=== PATIENT | female | born 1990 | race Caucasian/White ===

== ENCOUNTER 2018-11-21 18:58 | Emergency (ER) | payer BC ==
[~2018-11-21] VITALS: Ht 160 cm; Wt 106.6 kg
--- OUTSIDE RECORDS SUMMARY | ~2018-11-21 | XMS | Clinical Summary ---
Demographics + + + | Address | [address] | | | [place] [address] | + + + | Home Phone | | + + + | Preferred Language | Unknown | + + + | Marital Status | | + + + | Hindu Affiliation | Unknown | + + + | Race | Unknown | + + + | Ethnic Group | Unknown | + + + Author + + + | Author | [facility] | + + + | Organization | [facility] | + + + | Address | Unknown | + + + | Phone | Unavailable | + + + Support + + +---------+ + | Name | Relationship | Address | Phone | + + +---------+ + | Trish Villanueva | ECON | Unknown | | + + +---------+ + | Lester Nicholas | ECON | Unknown | | + + +---------+ + Care Team Providers + +------+ + | Care Client Care Representative Name | Role | Phone | + +------+ + | Laurie Meneses | PP | | + +------+ + Allergies + + + + + + | Active Allergy | Reactions | Severity | Noted | Comments | | | | | Date | | + + + + + + | Diphenhydramine | Itching, Headache | Medium | 03/04/20 | | | | | | 15 | | + + + + + + | Codeine | Anaphylaxis | High | 10/06/19 | | | | | | 14 | | + + + + + + | Morphine | Hallucinations | Medium | 05/21/20 | | | | | | 14 | | + + + + + + Current Medications + + +--------+---------+------+------+-------+ | Prescription | Sig. | Disp. | Refills | Star | End | Statu | | | | | | t | Date | s | | | | | | Date | | | + + +--------+---------+------+------+-------+ | BIOTIN PO | Take 1 capsule by | | | | | Activ | | | mouth daily. | | | | | e | + + +--------+---------+------+------+-------+ | B-12, | Place 3 tablets | | | | | Activ | | METHYLCOBALAMIN, SL | under the tongue | | | | | e | | | daily. | | | | | | + + +--------+---------+------+------+-------+ | ranitidine | Take 150 mg by mouth | | 2 | 03/2 | | Activ | | (ZANTAC) 150 MG | daily. | | | 20 | | e | | tablet | | | | 18 | | | + + +--------+---------+------+------+-------+ | VITAMIN E PO | Take 400 Units by | | | | | Activ | | | mouth daily. | | | | | e | + + +--------+---------+------+------+-------+ | Magnesium | Take by mouth | | | | | Activ | | Hydroxide (MAGNESIA | daily. | | | | | e | | PO) | | | | | | | + + +--------+---------+------+------+-------+ | Potassium 75 MG | Take 99 mg by mouth | | | | | Activ | | TABS | daily. Pt unsure of | | | | | e | | | mg | | | | | | + + +--------+---------+------+------+-------+ | busPIRone (BUSPAR) | Take 1 tablet by | 60 | 11 | 02/17 | 02/17 | Activ | | 7.5 MG | mouth 2 (two) times | tablet | | 12/06 | 12/06 | e | | tabletIndications: | daily. | | | 18 | 19 | | | Anxiety | | | | | | | + + +--------+---------+------+------+-------+ | | Take 1 tablet by | 28 | 2 | 03/21 | | Activ | | norethindrone-ethiny | mouth daily. | tablet | | 08/08 | | e | | l estradiol-iron | | | | 18 | | | | (TRI-LEGEST FE) | | | | | | | | 1-08/08-18/08-35 | | | | | | | | MG-MCG TABS | | | | | | | + + +--------+---------+------+------+-------+ | Vit-Fe | Take 1 tablet by | | | | | Activ | | Fumarate-FA | mouth daily with | | | | | e | | ( | breakfast. | | | | | | | MULTIVITAMIN & | | | | | | | | MINERALS W IRON/FA) | | | | | | | | 27-0.8 MG TABS | | | | | | | | tablet | | | | | | | + + +--------+---------+------+------+-------+ Active Problems + + + | Problem | Noted Date | + + + | Encounter for preconception consultation | 04/25/2018 | + + + | History of PCOS | 04/25/2018 | + + + | Abnormal uterine bleeding (AUB) | 04/25/2018 | + + + | Dysmenorrhea | 02/10/2018 | + + + | Amenorrhea | 02/10/2018 | + + + | Pelvic pain | 02/10/2018 | + + + | Dyspareunia, female | 02/10/2018 | + + + | Acute vaginitis | 02/10/2018 | + + + | Chlamydia | 02/10/2018 | + + + | Hx of ovarian cyst | 02/10/2018 | + + + | Flank pain | 02/10/2018 | + + + | Vaginal dryness | 02/10/2018 | + + + | Secondary amenorrhea | 12/23/2017 | + + + | Generalized anxiety disorder | 11/12/2017 | + + + | Severe episode of recurrent major depressive disorder, 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 | | + + + | 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 | 04/13/2017 | + + + | CTS (carpal tunnel syndrome) | 11/07/2013 | + + + | Deviated nasal septum | 11/07/2013 | + + + Encounters +--------+ + + + + | Date | Type | Specialty | Care Team | Description | +--------+ + + + + | 11/12/ | Telephone | | Enma Owens RN | | | 2019 | | | | | +--------+ + + + + from Last 3 Months Family History + + +------+ + | Medical History | Relation | Name | Comments | + + +------+ + | Hypothyroidism | Father | | | + + +------+ + | Liver cancer | Father | | | + + +------+ + | Pancreatic cancer | Father | | | + + +------+ + | Anemia | Mother | | | + + +------+ + | Endometriosis | Mother | | | + + +------+ + | Breast cancer | Paternal | | | | | Grandmoth | | | | | er | | | + + +------+ + | Ovarian cancer | Paternal | | | | | Grandmoth | | | | | er | | | + + +------+ + + +------+ + + | Relation | Name | Status | Comments | + +------+ + + | Brother | 1 | Alive | | + +------+ + + | Father | | | | + +------+ + + | Mother | | Alive | | + +------+ + + | Paternal Grandmother | | | | + +------+ + + Social History + +-------+ +--------+------+ | Tobacco Use | Types | Packs/Day | Years | Date | | | | | Used | | + +-------+ +--------+------+ | Passive Smoke | | | | | | Exposure - Never | | | | | | Smoker | | | | | + +-------+ +--------+------+ + +---+---+---+ | Smokeless Tobacco: | | | | | Current User | | | | + +---+---+---+ + + +---------+ + | Alcohol Use | Drinks/We | oz/Week | Comments | | | ek | | | + + +---------+ + | No | 0 | 0.0 | occasional | | | Standard | | | | | drinks or | | | | | | | | | | equivalen | | | | | t | | | + + +---------+ + + + + | Sex Assigned at | Date Recorded | | | | + + + | Not on file | | + + + Last Filed Vital Signs + + + + | Vital Sign | Reading | Time Taken | + + + + | Blood Pressure | 108/62 | 04/21/2018 8:43 AM PDT | + + + + | Pulse | 131 | 04/21/2018 8:43 AM PDT | + + + + | Temperature | 37.2 C (98.9 F) | 03/03/2018 1:10 PM PDT | + + + + | Respiratory Rate | 16 | 03/03/2018 1:10 PM PDT | + + + + | Oxygen Saturation | 99% | 04/21/2018 8:43 AM PDT | + + + + | Inhaled Oxygen | - | - | | Concentration | | | + + + + | Weight | 107 kg (236 lb) | 04/21/2018 8:43 AM PDT | + + + + | Height | 160 cm (5' 3") | 02/22/2018 1:32 PM PDT | + + + + | Body Mass Index | 41.81 | 04/21/2018 8:43 AM PDT | + + + + Plan of Treatment + + + + + | Health Maintenance | Due Date | Last Done | Comments | + + + + + | Vaccine: HPV (1 - | | | | | Female 3-dose | 8 | | | | series) | | | | + + + + + | ANNUAL /PHYSICAL | | | | | EXAM | 9 | | | + + + + + | Vaccine: | | | | | Dtap/Tdap/Td (1 - | 2 | | | | Tdap) | | | | + + + + + | Cervical Cancer | | 03/27/2017 | | | Screening (Pap) | 8 | | | + + + + + | Vaccine: Influenza | | | | | (Season Ended) | 9 | | | + + + + + Results Not on filefrom Last 3 Months Insurance + +--------+ +------+-------+---------+ | Payer | Benefi | Subscriber | Type | Phone | Address | | | t Plan | ID | | | | | | / | | | | | | | Group | | | | | + +--------+ +------+-------+---------+ | [employer] | HEALTH | [id number] | HMO | | | | MEDICAID PLANS | Y | | | | | | | OPTION | | | | | | | S-COOR | | | | | | | DINATE | | | | | | | D CARE | | | | | + +--------+ +------+-------+---------+ + +--------+ +--------+ + + | Guarantor Name | Accoun | Relation to | Date | Phone | Billing Address | | | t Type | Patient | of | | | | | | | | | | + +--------+ +--------+ + + | AMARI DIAZ | Person | Self [birth year] | Home: | [address] | | | al/Fam | | 1990 | [phone] | [place] | | | [place] | | | [phone] | [address] | + +--------+ +--------+ + +
--- OUTSIDE RECORDS SUMMARY | ~2018-11-21 | XMS | Encounter Summary ---
Demographics + + + | Address | [address] | | | [place] [address] | + + + | Home Phone | | + + + | Preferred Language | Unknown | + + + | Marital Status | | + + + | Moravian Affiliation | Unknown | + + + | Race | Unknown | + + + | Ethnic Group | Unknown | + + + Author + + + | Author | [facility] | + + + | Organization | [facility] | + + + | Address | [...] Team Providers + +------+ + | Care Card Lacer Jacquard Name | Role | Phone | + +------+ + | Laurie Meneses | PCP | | + +------+ + Encounter Details +--------+ + + + + | Date | Type | Department | Care Team | Description | +--------+ + + + + | 11/12/ | Telephone | [facility] | Enma Owens RN | | | 2018 | | [facility] | | | | | | [facility] | | | | | | [address], | | | | | | [address] [place], | | | | | | [place] [address] | | | | | | [phone] | | | +--------+ + + + + Social History + +-------+ +--------+------+ [...] on file | | + + + as of this encounter Plan of Treatment Not on fileas of this encounter Visit Diagnoses Not on filein this encounter"
--- OUTSIDE RECORDS SUMMARY | ~2018-11-21 | XMS | Clinical Summary ---
Demographics + + + | Address | [address] | | | [place] [address] | + + + | Home Phone | | + + + | Preferred Language | Unknown | + + + | Marital Status | Single | + + + | Catholic Affiliation | Unknown | + + + | Race | White | + + + | Ethnic Group | Not or | + + + Author + + + | Author | [facility] | + + + | Organization | [facility] | + + + | Address | Unknown | + + + | Phone | Unavailable | + + + Support + + +---------+ + | Name | Relationship | Address | Phone | + + +---------+ + | NEELIMA GUARDADO | ECON | Unknown | | + + +---------+ + Care Team Providers + +------+ + | Care Classifications Officer Cc/Cm Name | Role | Phone | + +------+ + | Candi Luna PA-C | PP | | + +------+ + Source Comments JACQUIE is fully live on both [facility] Ambulatory and [facility] InPatient.[facility] Allergies Not on File Current Medications Not on file Active Problems Not on file Encounters +--------+ + + + + | Date | Type | Specialty | Care Team | Description | +--------+ + + + + | 11/19/ | Telephone | | Ari Kerr, | Therapeutic | | 2019 | | | MD | | +--------+ + + + + from Last 3 Months Social History + +-------+ +--------+------+ | Tobacco Use | Types | Packs/Day | Years | Date | | | | | Used | | + +-------+ +--------+------+ | Never Assessed | | | | | + +-------+ +--------+------+ + + + | Sex Assigned at | Date Recorded | | | | + + + | Not on file | | + + + Plan of Treatment Not on file Results Not on filefrom Last 3 Months Insurance + +--------+ +------+ + + | Payer | Benefi | Subscriber | Type | Phone | Address | | | t Plan | ID | | | | | | / | | | | | | | Group | | | | | + +--------+ +------+ + + | [place] | BLUE | [phone] | PPO | [phone] [address] [address] [place] | | | CROSS | | | [address] | [place] [address] | | | [place] | | | | | | | L | | | | | + +--------+ +------+ + + + +--------+ +--------+ + + | Guarantor Name | Accoun | Relation to | Date | Phone | Billing Address | | | t Type | Patient | of | | | | | | | | | | + +--------+ +--------+ + + | AMARI DIAZ | Person | Self [birth year] | Home: | [address] | | | al/Fam | | 1990 | [phone] | [place] [address] | | | [place] | | | [address] | | + +--------+ +--------+ + +"
--- OUTSIDE RECORDS SUMMARY | ~2018-11-21 | XMS | Encounter Summary ---
Demographics + + + | Address | [address] | | | [place] [address] | + + + | Home Phone | | + + + | Preferred Language | Unknown | + + + | Marital Status | Single | + + + | Orthodoxy Affiliation | Unknown | + + + | Race | White | + + + | Ethnic Group | Not or | + + + Author + + + | Author | [facility] | + + + | Organization | [facility] | + + + | Address | Unknown | + + + | Phone | Unavailable | + + + Support + + +---------+ + | Name | Relationship | Address | Phone | + + +---------+ + | WAKE,NEELIMA | ECON | Unknown | | + + +---------+ + Care Team Providers + +------+ + | Care Concert Promoter Name | Role | Phone | + +------+ + | Candi Luna PA-C | PCP | | + +------+ + Reason for Visit + + + | Reason | Comments | + + + | Therapeutic | | + + + Encounter Details +--------+ + + + + | Date | Type | Department | Care Team | Description | +--------+ + + + + | 11/19/ | Telephone [facility] | Ari Kerr, | Therapeutic | | 2019 | | [facility] | [address] | | | | | [address] | [address] | | | | | [facility] | [place], [place] | | | | | [address] | [address] | | | | | [place], | [phone] | | | | | [place] [address] | | | | | | [phone] | | | +--------+ + + + [...]
--- OUTSIDE RECORDS SUMMARY | ~2018-11-21 | XMS | Encounter Summary ---
Demographics + + + | Address | [address] | | | [place] [address] | + + + | Home Phone | | + + + | Preferred Language | Unknown | + + + | Marital Status | | + + + | Tenriism Affiliation | Unknown | + + + | Race | Unknown | + + + | Ethnic Group | Unknown | + + + Author + + + | Author | [facility] | + + + | Organization | [facility] | + + + | Address | [...] Team Providers + +------+ + | Care Heel Breaster Name | Role | Phone | + +------+ + | Laurie Meneses | PCP | | + +------+ + Encounter Details +--------+ + + + + | Date | Type | Department | Care Team | Description | +--------+ + + + + | 11/12/ | Telephone | [facility] | Enma Owens RN | | | 2018 | | [facility] | | | | | | [facility] | | | | | | [address], | | | | | | [address] [place], | | | | | | [place] [address] | | | | | | [phone] | | | +--------+ + + + [...]
--- OUTSIDE RECORDS SUMMARY | ~2018-11-21 | XMS | Clinical Summary ---
Demographics + + + | Address | [address] | | | [place] [address] | + + + | Home Phone | | + + + | Preferred Language | Unknown | + + + | Marital Status | | + + + | Mormonism Affiliation | Unknown | + + + | Race | Unknown | + + + | Ethnic Group | Unknown | + + + Author + + + | Author | [facility] | + + + | Organization | [facility] | + + + | Address | [...] Team Providers + +------+ + | Care Supervisor Cleaning And Annealing Name | Role | Phone | + [...] +------+-------+---------+ | [employer] | HEALTH | [id number] | HMO | | | | MEDICAID [...] | | al/Fam | | 1990 | [phone] | [place] | | | [place] | | | [address] | [address] | + +--------+ +--------+ + +
--- OUTSIDE RECORDS SUMMARY | ~2018-11-21 | XMS | Encounter Summary ---
Demographics + + + | Address | [address] | | | [place] [address] | + + + | Home Phone | | + + + | Preferred Language | Unknown | + + + | Marital Status | Single | + + + | Confucianist Affiliation | Unknown | + + + | Race | White | + + + | Ethnic Group | Not or | + + + Author + + + | Author | [facility] | + + + | Organization | [facility] | + + + | Address | Unknown | + + + | Phone | Unavailable | + + + Support + + +---------+ + | Name | Relationship | Address | Phone | + + +---------+ + | WAKE,NEELIMA | ECON | Unknown | | + + +---------+ + Care Team Providers + +------+ + | Care Data Virtualization Consultant Name | Role | Phone | + [...] | Therapeutic | | 2019 | | [facility] | [address] | | | | | [address] | [address] | | | | | [facility] | [place], [place] | | | | | [address] | [address] | | | | | [place], | [phone] | | | | | [place] [address] | | | | | | [phone] | | | +--------+ + + + [...]
--- OUTSIDE RECORDS SUMMARY | ~2018-11-21 | XMS | Clinical Summary ---
Demographics + + + | Address | [address] | | | [place] [address] | + + + | Home Phone | | + + + | Preferred Language | Unknown | + + + | Marital Status | Single | + + + | Mosque Affiliation | Unknown | + + + [...] Team Providers + +------+ + | Care Mechanical Designer Name | Role | Phone | + +------+ + | Candi Luna PA-C | PP | | + +------+ + Source Comments JACQUIE is fully live on both [facility] Ambulatory and [facility] InPatient.[facility] Allergies Not on File Current Medications Not [...] | BLUE | [phone] | PPO | [phone] [address] [address] [place] | | | CROSS | | | [address] | [place] [address] | | | [place] | | | [...] | | al/Fam | | 1990 | [phone] | [place] [address] | | | [place] | | | [address] | | + +--------+ +--------+ + +"
[~2018-11-21 18:58] MED LIST: ATIVAN1 MG PO; CLEOCIN HCL300 MG PO; COMPAZINE25 MG PR; ZOFRAN ODT4 MG PO
--- OUTSIDE RECORDS SUMMARY | 2018-11-21 19:00 | XMS ---
PreManage Notification: AMARI DIAZ Security House Supervisor Events No recent Security Events currently on file [facility] CARE PROVIDERS [facility] Leonela PHONE: Unknown CHAVA Tay Current PHONE: [phone] MALACHI COSTELLO Primary Care Current PHONE: [phone] Zack has no Care Guidelines for this patient. Lucas VISIT COUNT (12 MO.) 2 [facility] TOTAL 2 NOTE: Visits indicate total known visits. ED/UCC VISIT TRACKING (12 MO.) 11/21/2018 18:59 [facility] [place] TYPE: Emergency COMPLAINT: - DIZZINESS,CRAMPING,8 WKS PREGO 06/13/2018 15:11 [facility] [place] TYPE: Emergency COMPLAINT: - VOMITING DIAGNOSES: - Allergy status to other drugs, medicaments and biological substances status - Vomiting, unspecified - Other jail (current) drug therapy - Allergy status to narcotic agent status INPATIENT VISIT TRACKING (12 MO.) No inpatient visits to display in this time frame [email or web address]
[2018-11-21] MEDS ORDERED: PRENATAL 19 TA1 EAC1 PO (19:12)
[2018-11-21] MEDS ORDERED: KEFLEX500 MG PO (23:02)
== END 2018-11-21 23:07 | disposition home or self-care (01) ==
LOC: ED 18:58
DX: O23.41 Unspecified infection of urinary tract in pregnancy, first trimester (principal); Z88.5 Allergy status to narcotic agent; Z88.8 Allergy status to other drugs, medicaments and biological substances; Z79.899 Other long term (current) drug therapy; Z3A.01 Less than 8 weeks gestation of pregnancy
CPT/HCPCS: 76801; 76817; 80053; 81001; 83690; 84702; 84703; 85025; 86900; 86901; 96360; 96361; 99284-25; J7030